=== PATIENT | female | born 1955 | race Caucasian/White ===

== ENCOUNTER 2022-08-03 07:23 | Outpatient (OUT) | payer MEDICARE, SELFPAY ==
[2022-08-03 07:45] LABS: Basophils Percent Auto 0.6 % (0.2-2.0); Eosinophils Absolute Auto 0.1 10^3/uL (0.0-0.7); Eosinophils Percent Auto 2.1 % (0.9-7.0); Hematocrit 40.7 % (36.0-48.0); Hemoglobin 13.6 g/dL (12.0-16.0); Immature Granulocytes Abs Auto 0.01 10^3/uL (0.00-0.03); Immature Granulocytes Pct Auto 0.2 % (0.0-0.5); Lymphocytes Absolute Auto 1.6 10^3/uL (1.2-3.8); Lymphocytes Percent Auto 33.9 % (20.5-60.0); Mean Corpuscular HGB Conc 33.4 g/dL (29.9-35.2); Mean Corpuscular Volume 89.6 fL (81.0-99.0); Mean Platelet Volume 9.1 fL (9.5-13.5); Monocytes Absolute Auto 0.5 10^3/uL (0.3-0.8); Neutrophils Absolute Auto 2.5 10^3/uL (1.4-6.5); Neutrophils Percent Auto 53.2 % (43.0-75.0); Platelet Count 281 10^3/uL (150-450); Red Blood Count 4.54 10^6/uL (4.20-5.40); Red Cell Distribution Width 12.6 % (11.0-15.0); White Blood Count 4.7 10^3/uL (4.0-11.0)
[2022-08-03 09:14] LABS: Estimated Average Glucose 120 mg/dL; Glycohemoglobin A1C 5.8 % (4.5-6.2)
[2022-08-03 09:22] LABS: Alanine Aminotransferase 31 U/L (14-59); Anion Gap 10.6; BUN Creatinine Ratio 22.2; Calcium 9.1 mg/dL (8.5-10.1); Carbon Dioxide 29.5 mmol/L (21.0-32.0); Chloride 104 mmol/L (98-107); Chol HDL Ratio 6.1; Cholesterol 257 mg/dL (<=200); Estimated GFR (African America >60 (>=60); Estimated GFR (Non-African Ame >60 (>=60); Glucose 105 mg/dL (74-106); HDL Cholesterol 42 mg/dL (40-60); Potassium 4.1 mmol/L (3.5-5.1); Sodium 140 mmol/L (136-145); Triglycerides 205 mg/dL (<=150)
== END 2022-08-03 07:24 | disposition home or self-care (01) ==
LOC: LAB 07:29
PROVIDERS: PCP Internal Medicine; Visit Provider Internal Medicine
DX: R73.01 Impaired fasting glucose (principal); E78.00 Pure hypercholesterolemia, unspecified; Z79.899 Other long term (current) drug therapy
CPT/HCPCS: 36415; 80048; 80061; 83036; 84460; 85025

== ENCOUNTER 2023-08-16 07:23 | Outpatient (OUT) | payer MEDICARE, SELFPAY ==
[2023-08-16 08:08] LABS: Basophils Percent Auto 0.6 % (0.2-2.0); Eosinophils Absolute Auto 0.1 10^3/uL (0.0-0.7); Eosinophils Percent Auto 2.2 % (0.9-7.0); Hemoglobin 13.7 g/dL (12.0-16.0); Immature Granulocytes Abs Auto 0.02 10^3/uL (0.00-0.03); Immature Granulocytes Pct Auto 0.4 % (0.0-0.5); Lymphocytes Absolute Auto 1.5 10^3/uL (1.2-3.8); Lymphocytes Percent Auto 30.2 % (20.5-60.0); Mean Corpuscular HGB Conc 33.4 g/dL (29.9-35.2); Mean Corpuscular Hemoglobin 30.4 pg (26.7-34.0); Mean Corpuscular Volume 91.1 fL (81.0-99.0); Mean Platelet Volume 9.5 fL (9.5-13.5); Monocytes Absolute Auto 0.5 10^3/uL (0.3-0.8); Monocytes Percent Auto 10.4 % (1.7-12.0); Neutrophils Absolute Auto 2.9 10^3/uL (1.4-6.5); Neutrophils Percent Auto 56.2 % (43.0-75.0); Platelet Count 274 10^3/uL (150-450); White Blood Count 5.1 10^3/uL (4.0-11.0)
[2023-08-16 09:30] LABS: Estimated Average Glucose 120 mg/dL; Glycohemoglobin A1C 5.8 % (4.5-6.2)
[2023-08-16 10:48] LABS: Alanine Aminotransferase 32 U/L (14-59); Albumin Globulin Ratio 1.1; Alkaline Phosphatase 56 U/L (46-116); Anion Gap 9.6; Aspartate Amino Transferase 19 U/L (15-37); BUN Creatinine Ratio 31.6; Bilirubin Total 0.5 mg/dL (0.2-1.0); Carbon Dioxide 28.4 mmol/L (21.0-32.0); Chloride 105 mmol/L (98-107); Chol HDL Ratio 5.8; Cholesterol 249 mg/dL (<=200); Estimated GFR (African America >60 (>=60); Estimated GFR (Non-African Ame >60 (>=60); Globulin 3.5 g/dL; Glucose 108 mg/dL (74-106); HDL Cholesterol 43 mg/dL (40-60); Sodium 139 mmol/L (136-145); Total Protein 7.5 g/dL (6.4-8.2); Triglycerides 219 mg/dL (<=150); VLDL CHOLESTEROL 43.8 mg/dL
== END 2023-08-16 07:24 | disposition home or self-care (01) ==
LOC: LAB 07:25
PROVIDERS: PCP Internal Medicine; Visit Provider Internal Medicine
DX: R73.01 Impaired fasting glucose (principal); J45.909 Unspecified asthma, uncomplicated; I10 Essential (primary) hypertension; E78.00 Pure hypercholesterolemia, unspecified
CPT/HCPCS: 36415; 80053; 80061; 83036; 85025

== ENCOUNTER 2024-03-05 08:48 | Outpatient (OUT) | payer MEDICARE, SELFPAY ==
--- OUTSIDE RECORDS SUMMARY | 2024-03-05 08:53 | XMS_ITS | CCD ---
Author Organization [facility] Team Providers Care Staff Mine Warfare Officer Name Role Phone CARMENCITA, DR THAPA Admitting Unavailable CARMENCITA, DR THAPA Attending Unavailable CARMENCITA, DR THAPA Referring Unavailable CARMENCITA, DR THAPA Primary Care Unavailable CARMENCITA, DR THAPA Consulting Unavailable Carmencita, Patrick Unavailable Allergies Allergy Classification Reported Allergen(s) Allergy Type Date of Onset Reaction(s) Facility (4 sources) Lovastatin Drug Allergy Unknown [facility] Other (1 source) patient allergy list reviewed by nurse or physicia Propensity to adverse reactions 9 Comment:Done [facility] Other Medications Current Medications Medication Drug Class(es) Dates Sig (Normalized) Sig (Original) [id number] actuat albuterol 0.09 mg/actuat metered dose inhaler (5 sources) beta2-Adrenergic Agonist Start: 08-03-2023 take 1 puff(s) by inhalation every four hours Albuterol Sulfate Active 1 PUFF INHALATION Every 4 hours August 03, 2023 12:00am take 1 puff(s) by in halation every four hours as needed Albuterol Sulfate HFA 108 (90 Base) MCG/ACT 1 puff as needed Inhalation every 4 hrs Active take 1 puff(s) by in halation every four hours as needed Albuterol Sulfate HFA 108 (90 Base) MCG/ACT 1 puff as needed Inhalation every 4 hrs Active biotin 1 mg chewable tablet (5 sources) Start: 08-03-2023 take 1000 ug by mouth once daily Biotin Active 1000 MCG PO Daily August 03, 2023 12:00am take 1 tablet by elpidio th every twenty-four hours Biotin 1000 MCG 1 tablet Orally Once a day Active take 1 tablet by elpidio th every twenty-four hours Biotin 1000 MCG 1 tablet Orally Once a day Active bisoprolol fumarate 5 mg / hydroCHLOROthiazide 6.25 mg oral tablet (6 sources) Thiazide Diuretic, beta-Adrenergic Allison Start: 04-03-2023 End: 07-03-2023 take 1 tablet by mouth once daily Bisoprolol-Hydrochlorothiazide Active 1 TAB PO Daily July 03, 2023 12:57pm take 1 tablet by elpidio th once daily Bisoprolol-hydroCHLOROthiazide 5-6.25 MG TAKE 1 TABLET BY MOUTH EVERY DAY Active esomeprazole 40 mg delayed release oral capsule (5 sources) Proton Pump Inhibitor Start: 08-03-2023 take 40 mg by mouth once daily Esomeprazole Magnesium Active 40 MG PO Daily August 03, 2023 12:00am take 1 capsule by mo uth once daily at breakfast Esomeprazole Magnesium 40 MG TAKE 1 CAPS ULE BY MOUTH ONCE A DAY ON AN EMPTY STOMACH FOLLOWED IN 30 MINUTES BY BREAKFAST Active Fluticasone Propion-Salmeterol (5 sources) Corticosteroid, beta2-Adrenergic Agonist Start: 08-03-2023 Fluticasone Propion-Salmeterol (Advair Diskus) 250-50 mcg/dose blister with device Active 1 INH INHALATION Every 12 hours August 03, 2023 12:00am take 1 puff(s) by mouth every tw elve hours Advair Diskus 250-50 MCG/ACT INHALE 1 PUFF BY MOUTH EVERY 12 HOURS for 30 Active Glucosamine Chond Cmp Advanced - (4 sources) Glucosamine Roque d Cmp Advanced - as directed Orally Active mecobalamin 1 mg chewable tablet (1 source) Start: 4 take 1000 ug by mouth once daily Mecobalamin (Vitamin B12) Active 1000 MCG PO Daily August 03, 2023 12:00am montelukast 10 mg oral tablet (6 sources) Leukotriene Receptor Antagonist Start: 4 End: 4 take 10 mg by mouth once daily at bedtime Montelukast Active 10 MG PO Daily at bedtime 90 July 03, 2023 6:04pm take 1 tablet by mouth at bedtim e Montelukast Sodium 10 MG TAKE 1 TABLET BY MOUTH AT BEDTIME for 90 Active rosuvastatin calcium 10 mg oral tablet (3 sources) HMG-CoA Reductase Inhibitor Start: 08-03-2023 take 10 mg by mouth once daily Rosuvastatin Active 10 MG PO Daily August 03, 2023 12:00am Rosuvastatin Apollo cium 10 MG TAKE 1 TABLET BY MOUTH EVERY DAY FOR 30 DAYS for 30 Active ubiquinol 100 mg oral capsule (1 source) Start: 08-03-2023 Coq10 (Ubiquin ol) (Qunol Juve Coq10) 100 mg capsule Active 200 MG PO Twice daily August 03, 2023 12:00am vitamin b12 1 mg extended release oral tablet (2 sources) Vitamin B12 take 2 tablets by mouth every twenty-four hours Vitamin B12 1000 MCG 2 tablets Orally Once a day Active Vitamin B12 1000 MCG (2 sources) take 2 tablets by mouth once daily Vitamin B12 1000 MCG 2 tablets Orally Once a day Active vitamin e 450 mg oral capsule (3 sources) Start: 08-03-2023 take 1000 [IU] by mouth once daily Vitamin E Mixed Active 1000 UNIT PO Daily August 03, 2023 12:00am Vitamin E 1000 U NIT as directed Orally Active Vitamin E 1000 UNIT (2 sources) Vitamin E 1000 U NIT as directed Orally Active Problems Active Problems Problem Classification Problem Date Documented Date Episodic/Chronic Asthma (13 sources) Uncomplicated mild persistent asthma; Translations: [Mild persistent asthma, uncomplicated] Onset: 04-11-2013 Chronic Chronic obstructive pulmonary disease and bronchiectasis (2 sources) Unspecified chronic bronchitis; Translations: [Chronic bronchitis] Onset: 08-25-2016 Chronic Conditions associated with dizziness or vertigo (2 sources) Benign paroxysmal vertigo, bilateral; Translations: [Benign paroxysmal positional vertigo] Episodic Diabetes mellitus without complication (10 sources) Impaired fasting glycemia; Translations: [Impaired fasting glucose] Episodic Disorders of lipid metabolism (12 sources) Hypercholesterolemia; Translations: [Pure hypercholesterolemia, unspecified] Onset: 10-01-2014 Chronic Diverticulosis and diverticulitis (2 sources) Diverticulitis of colon (without mention of hemorrhage); Translations: [Diverticulitis of colon] Onset: 10-20-2013 Chronic Esophageal disorders (6 sources) Esophageal reflux; Translations: [Gastro-esophageal reflux disease with esophagitis] Onset: 10-01-2014 08-01-2023 Chronic Essential hypertension (4 sources) Essential hypertension; Translations: [Essential (primary) hypertension] Chronic Osteoarthritis (3 sources) Bilateral primary osteoarthritis of first carpometacarpal joints; Translations: [Localized, primary osteoarthritis of the hand] Onset: 04-03-2018 Chronic Other aftercare (1 source) Other moth exterminator (current) drug therapy Episodic Other inflammatory condition of skin (1 source) Other rosacea; Translations: [Other rosacea] Chronic Other inflammatory condition of skin (1 source) Rosacea; Translations: [Other rosacea] Chronic Other nutritional; endocrine; and metabolic disorders (1 source) Obesity, unspecified; Translations: [Obesity, unspecified] Chronic Other nutritional; endocrine; and metabolic disorders (1 source) Other obesity due to excess calories; Translations: [Other obesity due to excess calories] Chronic Other nutritional; endocrine; and metabolic disorders (2 sources) Obese class I; Translations: [Body mass index 33.0-33.9, adult] Onset: 10-01-2014 Chronic Other nutritional; endocrine; and metabolic disorders (1 source) Obesity; Translations: [Obesity, unspecified] Chronic Other nutritional; endocrine; and metabolic disorders (1 source) Simple obesity ; Translations: [Other obesity due to excess calories] Chronic Other nutritional; endocrine; and metabolic disorders (1 source) Overweight Episodic Residual codes; unclassified (5 sources) Procedure and treatment not carried out because of patient's decision for unspecified reasons; Translations: [Surgical or other procedure not carried out because of patient's decision] Episodic Residual codes; unclassified (1 source) Procedure not done; Translations: [Procedure and treatment not carried out because of patient's decision for unspecified reasons] Episodic Residual codes; unclassified (1 source) Colon cancer screening declined; Translations: [Procedure and treatment not carried out because of patient's decision for unspecified reasons] 08-01-2023 Episodic Residual codes; unclassified (1 source) Mammogram declined; Translations: [Procedure and treatment not carried out because of patient's decision for unspecified reasons] 08-01-2023 Episodic Screening and history of mental health and substance abuse codes (1 source) Encounter for screening for depression; Translations: [Encounter for screening for depression] Episodic Viral infection (2 sources) COVID-19; Translations: [Disease caused by 2019-nCoV] Past or Other Problems Problem Classification Problem Date Documented Da te Episodic/Chronic Abdominal pain (4 sources) Left lower quadrant pain; Translations: [Unspecified abdominal pain] Onset: 10-13-2013 Episodic Acute bronchitis (2 sources) Acute bronchitis, unspecified; Translations: [Acute bronchitis] Onset: 04-08-2014 Episodic Asthma (1 source) Asthma; Translations: [Asthma, unspecified, unspecified status] Onset: 08-25-2016 Esophageal disorders (6 sources) Esophageal disorders; Translations: [Gastroesophageal reflux disease with esophagitis without hemorrhage] Nausea and vomiting (2 sources) Nausea; Translations: [Nausea] Onset: 11-29-2015 Episodic Nonspecific chest pain (2 sources) Chest pain, unspecified; Translations: [Chest pain] Onset: 08-26-2014 Episodic Other acquired deformities (2 sources) Barling-neck deformity; Translations: [Barling-neck deformity] Onset: 04-11-2013 Episodic Other connective tissue disease (1 source) Other tenosynovitis of hand and wrist; Translations: [Other tenosynovitis of hand and wrist] Onset: 02-21-2018 Episodic Other connective tissue disease (1 source) Unspecified rotator cuff tear or rupture of left shoulder, not specified as traumatic; Translations: [Unspecified rotator cuff tear or rupture of left shoulder, not specified as traumatic] Onset: 04-11-2013 Episodic Other connective tissue disease (2 sources) Radial styloid tenosynovitis; Translations: [Radial styloid tenosynovitis] Onset: 02-21-2018 Episodic Other connective tissue disease (1 source) Tendinitis AND/OR tenosynovitis of wrist AND/OR hand; Translations: [Other tenosynovitis of hand and wrist] Onset: 02-21-2018 Episodic Other connective tissue disease (1 source) Nontraumatic rupture of rotator cuff of left shoulder; Translations: [Unspecified rotator cuff tear or rupture of left shoulder, not specified as traumatic] Onset: 04-11-2013 Episodic Other gastrointestinal disorders (1 source) Diarrhea, unspecified; Translations: [Diarrhea, unspecified] Onset: 11-29-2015 Episodic Other gastrointestinal disorders (1 source) Diarrhea; Translations: [Diarrhea, unspecified] Onset: 11-29-2015 Episodic Other lower respiratory disease (1 source) Dyspnea, unspecified; Translations: [Dyspnea, unspecified] Onset: 08-26-2014 Episodic Other lower respiratory disease (1 source) Dyspnea; Translations: [Dyspnea, unspecified] Onset: 08-26-2014 Episodic Other non-traumatic joint disorders (1 source) Arthralgia of the pelvic region and thigh; Translations: [Pain in joint, pelvic region and thigh] Onset: 11-10-2013 Episodic Other non-traumatic joint disorders (1 source) Shoulder joint pain; Translations: [Pain in joint, shoulder region] Onset: 05-30-2013 Episodic Other upper respiratory infections (2 sources) Acute sinusitis, unspecified; Translations: [Acute sinusitis] Onset: 04-08-2014 Episodic Unclassified (1 source) Pain in joint, pelvic region and thigh; Translations: [Pain in joint, pelvic region and thigh] Onset: 11-10-2013 Unclassified (1 source) Pain in joint, shoulder region; Translations: [Pain in joint, shoulder region] Onset: 05-30-2013 Unclassified (1 source) Body mass index 33.0-33.9, adult; Translations: [Body mass index 33.0-33.9, adult] Onset: 10-01-2014 Unclassified (1 source) Screening for lipoid disorders; Translations: [Screening for lipoid disorders] Onset: 10-01-2014 Unclassified (1 source) Long-term (current) use of other medications; Translations: [Long-term (current) use of other medications] Onset: 10-09-2016 Unclassified (1 source) Body mass index 32.0-32.9, adult; Translations: [Body mass index 32.0-32.9, adult] Onset: 10-01-2014 Unclassified (1 source) Primary localized osteoarthrosis, hand; Translations: [Primary localized osteoarthrosis, hand] Onset: 04-03-2018 Unclassified (1 source) Routine general medical examination at health care facility; Translations: [Routine general medical examination at health care facility] Onset: 08-25-2016 Unclassified (1 source) Long-term current use of drug therapy; Translations: [Long-term (current) use of other medications] Onset: 10-09-2016 Results Test Name Value Interpretation Reference Range Facil ity CBC AUTO DIFFon 04-22-2021 BASO # 0.0 103/ul Normal 0.0-0.1 [facility] Comment on above: Performed By: #### C BC #### [facility] [address] [address] [address] Flex Hart Basophils/100 WBC (Bld) 0.7 % Normal 0.2-2.0 [facility] Comment on above: Performed By: #### C BC #### [facility] [address] [place] [address] Dr. Flex Hart EO # 0.1 103/ul Normal 0.0-0.7 [facility] Comment on above: Performed By: #### C BC #### [facility] [address] [place] [address] Dr. Flex Hart Eosinophils/100 WBC (Bld) 2.2 % Normal 0.9-7.0 [facility] Comment on above: Performed By: #### C BC #### [facility] [address] [place] [address] Dr. Flex Hart Erythrocyte distribution width (RBC) [Ratio] 12.3 % Normal 11.0-15.0 [facility] Comment on above: Performed By: #### C BC #### [facility] [address] [place] [address] Dr. Flex Hart Hematocrit (Bld) [Volume fraction] 42.6 % Normal 36.0-48.0 [facility] Comment on above: Performed By: #### C BC #### [facility] [address] [place] [address] Dr. Flex Hart Hemoglobin (Bld) [Mass/Vol] 13.8 g/dL Normal 12.0-16.0 [facility] Comment on above: Performed By: #### C BC #### [facility] [address] [place] [address] Dr. Flex Hart IG # 0.01 10e3/ul Normal 0.00-0.03 [facility] Comment on above: Performed By: #### C BC #### [facility] [address] [place] [address] Dr. Flex Hart IG % 0.2 % Normal 0.0-0.5 [facility] Comment on above: Performed By: #### C BC #### [facility] [address] [place] [address] Dr. Flex Hart LYMPH # 2.0 103/ul Normal 1.2-3.8 [facility] Comment on above: Performed By: #### C BC #### [facility] [address] [place] [address] Dr. Flex Hart Lymphocytes/100 WBC (Bld) 35.5 % Normal 20.5-60.0 [facility] Comment on above: Performed By: #### C BC #### [facility] [address] [place] [address] Dr. Flex Hart MANUAL DIFF REQ NO Normal [facility] Comment on above: Performed By: #### C BC #### [facility] [address] [place] [address] Dr. Flex Hart MCH (RBC) [Entitic mass] 30.1 pg Normal 26.7-34.0 [facility] Comment on above: Performed By: #### C BC #### [facility] [address] [place] [address] Dr. Flex Hart MCHC (RBC) [Mass/Vol] 32.4 g/dL Normal 29.9-35.2 [facility] Comment on above: Performed By: #### C BC #### [facility] [address] [place] [address] Dr. Flex Hart MCV (RBC) [Entitic vol] 93.0 fL Normal 81.0-99.0 [facility] Comment on above: Performed By: #### C BC #### [facility] [address] [place] [address] Dr. Flex Hart MONO # 0.5 103/ul Normal 0.3-0.8 [facility] Comment on above: Performed By: #### C BC #### [facility] [address] [place] [address] Dr. Flex aHrt Monocytes/100 WBC (Bld) 9.1 % Normal 1.7-12.0 [facility] Comment on above: Performed By: #### C BC #### [facility] [address] [place] [address] Dr. Flex Hart NEUT # 2.9 103/ul Normal 1.4-6.5 [facility] Comment on above: Performed By: #### C BC #### [facility] [address] [place] [address] Dr. Flex Hart Neutrophils/100 WBC (Bld) 52.3 % Normal 43.0-75.0 [facility] Comment on above: Performed By: #### C BC #### [facility] [address] [place] [address] Dr. Flex Hart Platelet mean volume (Bld) [Entitic vol] 9.4 fL Critically low 9.5-13.5 [facility] Comment on above: Performed By: #### C BC #### [facility] [address] [place] [address] Dr. Flex Hart PLT 295 103/ul Normal 150-450 [facility] Comment on above: Performed By: #### C BC #### [facility] [address] [place] [address] Dr. Flex Hart RBC 4.58 106/ul Normal 4.20-5.40 [facility] Comment on above: Performed By: #### C BC #### [facility] [address] [place] [address] Dr. Flex Hart WBC 5.6 103/ul Normal 4.0-11.0 [facility] Comment on above: Performed By: #### C BC #### [facility] [address] [place] [address] Dr. Flex Hart LIPID PROFILEon 04-22-2021 CHOL-HDL RATIO NORM SEE BELOW Normal [facility] [place] Comment on above: Result Comment: 3.3 - 4.4 LOW RISK 4.4 - 7.1 AVERAGE RISK 7.1 - 11.0 MODERATE RISK >11.0 HIGH RISK Performed By: #### C MP, LIPID #### [facility] [address] [place] [address] Dr. Flex Hart Cholesterol [Mass/Vol] 294 mg/dL Critically high <=200 [facility] Comment on above: Performed By: #### C MP, LIPID #### [facility] [address] [place] [address] Dr. Flex Hart Cholesterol in HDL [Mass/Vol] 44 mg/dL Normal 40-60 [facility] Comment on above: Performed By: #### C MP, LIPID #### [facility] [address] [address] [address] Flex Hart Cholesterol in LDL [Mass/Vol] 203.6 mg/dL Normal [facility] Comment on above: Performed By: #### C MP, LIPID #### [facility] [address] [address] [address] Flex Hart Cholesterol.total/C holesterol in HDL [Mass ratio] 6.7 {ratio} Normal [facility] Comment on above: Performed By: #### C MP, LIPID #### [facility] [address] [address] [address] Flex Hart HDL NORMAL > or = 60 mg/dl - LO W CARDIOVASCULAR RISK <40 mg/dl - HIGH CARDIOVASCULAR RISK Normal [facility] Comment on above: Performed By: #### C MP, LIPID #### [facility] [address] [place] [address] Dr. Flex Hart LDL CALC NORMAL SEE BELOW Normal [facility] Comment on above: Result Comment: <100 mg/dl OPTIMAL 100 - 129 mg/dl NEAR OR ABOVE OPTIMAL 130 - 159 mg/dl BORDERLINE HIGH 160 - 189 mg/dl HIGH >190 mg/dl VERY HIGH Performed By: #### C MP, LIPID #### [facility] [address] [place] [address] Dr. Flex Hart Triglyceride [Mass/Vol] 232 mg/dL Critically high <=150 [facility] Comment on above: Performed By: #### C MP, LIPID #### [facility] [address] [address] [address] Flex Hart VLDL CALC 46.4 mg/dL Normal [facility] Comment on above: Performed By: #### C MP, LIPID #### [facility] [address] [address] [address] Flex Hart PROF 14(COMP METB)on 022 Albumin [Mass/Vol] 4.2 g/dL Normal 3.4-5.0 [facility] Comment on above: Performed By: #### C MP, LIPID #### [facility] [address] [address] [address] Flex Hart Albumin/Globulin [Mass ratio] 1.1 {ratio} Normal [facility] Comment on above: Performed By: #### C MP, LIPID #### [facility] [address] [address] [address] Flex Hart ALP [Catalytic activity/Vol] 60 U/L Normal 46-116 [facility] Comment on above: Performed By: #### C MP, LIPID #### [facility] [address] [address] [address] Flex Hart ALT [Catalytic activity/Vol] 28 U/L Normal 14-59 [facility] Comment on above: Performed By: #### C MP, LIPID #### [facility] [address] [address] [address] Flex Hart Anion gap [Moles/Vol] 11.7 mmol/L Normal [facility] Comment on above: Performed By: #### C MP, LIPID #### [facility] [address] [address] [address] Flex Hart AST [Catalytic activity/Vol] 22 U/L Normal 15-37 [facility] Comment on above: Performed By: #### C MP, LIPID #### [facility] [address] [address] [address] Flex Hart Bilirubin [Mass/Vol] 0.4 mg/dL Normal 0.2-1.3 [facility] Comment on above: Performed By: #### C MP, LIPID #### [facility] [address] [address] [address] Flex Hart Calcium [Mass/Vol] 8.9 mg/dL Normal 8.5-10.1 [facility] Comment on above: Performed By: #### C MP, LIPID #### [facility] [address] [address] [address] Flex Hart Chloride [Moles/Vol] 105 mmol/L Normal 98-107 [facility] Comment on above: Performed By: #### C MP, LIPID #### [facility] [address] [address] [address] Flex Hart CO2 [Moles/Vol] 27.6 mmol/L Normal 22.0-30.0 [facility] Comment on above: Performed By: #### C MP, LIPID #### [facility] [address] [address] [address] Flex Hart Creatinine [Mass/Vol] 0.66 mg/dL Normal 0.52-1.04 [facility] Comment on above: Performed By: #### C MP, LIPID #### [facility] [address] [address] [address] Flex Hart EGFR-AF PUERTO RICAN >60 Normal >=60 [facility] Comment on above: Performed By: #### C MP, LIPID #### [facility] [address] [place] [address] Dr. Flex Hart EGFR-NON AF PUERTO RICAN >60 Normal >=60 [facility] Comment on above: Performed By: #### C MP, LIPID #### [facility] [address] [place] [address] Dr. Flex Hart Globulin (S) [Mass/Vol] 3.7 g/dL Normal [facility] Comment on above: Performed By: #### C MP, LIPID #### [facility] [address] [place] [address] Dr. Flex Hart Glucose [Mass/Vol] 114 mg/dL Critically high 74-106 [facility] Comment on above: Performed By: #### C MP, LIPID #### [facility] [address] [place] [address] Dr. Flex Hart Potassium [Moles/Vol] 4.3 mmol/L Normal 3.4-5.0 [facility] Comment on above: Performed By: #### C MP, LIPID #### [facility] [address] [address] [address] Flex Hart Protein [Mass/Vol] 7.9 g/dL Normal 6.1-8.2 [facility] Comment on above: Performed By: #### C MP, LIPID #### [facility] [address], [place] [address] Dr. Flex Hart Sodium [Moles/Vol] 140 mmol/L Normal 137-145 [facility] Comment on above: Performed By: #### C MP, LIPID #### [facility] [address], [place] [address] Dr. Flex Hart Urea nitrogen [Mass/Vol] 16.0 mg/dL Normal 7.0-18.0 [facility] Comment on above: Performed By: #### C MP, LIPID #### [facility] [address], [place] [address] Dr. Flex Hart Urea nitrogen/Creatinine [Mass ratio] 24.2 mg/mg Normal [facility] Comment on above: Performed By: #### C MP, LIPID #### [facility] [address], [place] [address] Dr. Flex Hart Vital Signs Date Time Vital Sign Value Performing Clinician Facility 08-03-2023 11:08-0400 Body height 160.02 cm [facility] 08-03-2023 11:08-0400 Body mass index (BMI) [Ratio] 28.3 kg/m2 [facility] 08-03-2023 11:08-0400 Body weight 72.68 kg [facility] 08-03-2023 11:08-0400 Diastolic blood pressure 71 mm[Hg] [facility] 08-03-2023 11:08-0400 Heart rate 71 /min [facility] 08-03-2023 11:08-0400 Respiratory rate 12 /min [facility] 08-03-2023 11:08-0400 Systolic blood pressure 127 mm[Hg] [facility] 03-19-2023 09:30-0500 Body height 167.64 cm Patrick Tse Other [facility] Other 03-19-2023 09:30-0500 Body mass index (BMI) [Ratio] 26.66 kg/m2 Patrick Ball Other [facility] Other 03-19-2023 09:30-0500 Body weight 74.93 kg Patrick Ball Other [facility] Other 03-19-2023 09:30-0500 Diastolic blood pressure 75 mm[Hg] Patrick Ball Other [facility] Other 03-19-2023 09:30-0500 Respiratory rate 12 /min Patrick Ball Other [facility] Other 03-19-2023 09:30-0500 Systolic blood pressure 130 mm[Hg] Patrick Ball Other [facility] Other 08-01-2022 09:30-0400 Body height 167.64 cm Patrick Ball Other [facility] Other 08-01-2022 09:30-0400 Body mass index (BMI) [Ratio] 25.85 kg/m2 Patrick Ball Other [facility] Other 08-01-2022 09:30-0400 Body weight 72.67 kg Patrick Ball Other [facility] Other 08-01-2022 09:30-0400 Diastolic blood pressure 80 mm[Hg] Patrick Ball Other [facility] Other 08-01-2022 09:30-0400 Respiratory rate 12 /min Patrick Ball Other [facility] Other 08-01-2022 09:30-0400 Systolic blood pressure 125 mm[Hg] Patrick Ball Other [facility] Other Encounters Encounter Date Encounter Type Care Provider Facility Start: 08-03-2023 End: 08-03-2023 [facility] Work Phone: Start: 08-03-2023 End: 08-03-2023 Patient encounter procedure [facility] Work Phone: Start: 07-03-2023 Non-patient / Non-visit [facility] Work Phone: Start: 03-19-2023 End: 03-19-2023 ambulatory Patrick Tse Other [facility] Other Start: 03-19-2023 Office outpatient vi sit 25 minutes Patrick Carmencita [facility] Start: 02-27-2023 End: 02-27-2023 ambulatory Patrick Tse Other [facility] Other Start: 02-27-2023 Telephone encounter Patrick Tse [facility] Start: 08-04-2022 End: 08-04-2022 ambulatory Patrick Tse Other [facility] Other Start: 08-04-2022 Telephone encounter Patrick Tse [facility] Start: 08-01-2022 End: 08-01-2022 ambulatory Patrick Tse Other [facility] Other Start: 08-01-2022 Initial preventive exam Patrick Webb narayan [facility] Start: 08-01-2022 Patient encounter procedure Patrick Tse [facility] Start: 08-01-2022 Patient encounter status Patrick Tse Other [facility] Other Start: 04-26-2021 Encounter for genera l adult medical examination without abnormal findings DR PATRICK TSE [facility] Start: 04-22-2021 End: 04-23-[address] PATRICK TSE Facility:[facility] Start: 04-22-2021 End: 04-23-2021 Encounter for general adult medical examination without abnormal findings DR PATRICK TSE Facility:[facility] Start: 04-18-2021 Adult health examination Patrick Tse Other [facility] Other Start: 04-18-2021 Encounter for genera l adult medical examination without abnormal findings Patrick Tse Other [facility] [employer] Other Procedures Date Procedure Procedure Detail Performing Clinician Start: 08-25-2016 General examination of patient Patrick Tse Other Start: 10-01-2014 Hyperlipidemia screening Patrick Tse Other Depression screening Guerda Tse Other Plan of Treatment Date Care Activity Detail Author Comprehensive metabo lic 2000 panel - Serum or Plasma [facility] enter [facility] Payers Date Payer Category Payer Unknown [id number] 1957 Unknown [id number] 1955 Unknown [id number] Medicare [id number] 2.1 [id number] Private Health Insurance CLI [id number] Social History Date Type Detail Facility Sex Assigned At [facility] [email or web address] [facility] Other Start: 08-03-2023 Tobacco smoking stat us [facility] Never smoked tobacco (finding) [facility] Start: 1955 Sex Assigned At Female F [facility] Evaluation note 03-19-2023 Note Date & Type Note Facility 03-19-2023 Evaluation note Encounter Date Diagnosis Assessment Notes Mar, IFG (impaired fasting glucose) (ICD-10 - R73.01) Instructed on a healthy diet and exercise routine. A1C every year w/ wellness examination w/ goal < 6.5% Instructed on correlation of obesity and insulin resistance. Mar, Primary hypertension (ICD-10 - I10) This patient is instructed to consume a healthy, low-fat, low-salt diet. They are also encouraged to continue exercise to achieve/maintain a normal BMI. Mar, Hypercholesteremia (ICD-10 - E78.00) Instructed on diet and exercise with continued statin therapy.Discussed the beneficial effects of lowering cholesterol in reducing the risk for cerebrovascular and cardiovascular disease. Mar, Mild persistent asthma without complication (ICD-10 - J45.30) Controlled w/ exacerbations limited to seasonal changes and URI. She is instructed to increased maintenance inhaler to bid and use HEATHER every 4 hours as needed during exacerations. She uses maintenance inhalers qd. No ER visits for AE in past 6mo Mar, Overweight (ICD-10 - E66.3) This patient has been instructed on a low-fat, high-fiber diet. They are instructed to reduce calories, portion sizes and snacks. It is recommended that they exercise for 30 minutes, 3-5 times weekly. Mar, Gastroesophageal reflux disease with esophagitis without hemorrhage (ICD-10 - K21.00) Avoid lying flat after eating. Avoid eating 2 hours prior to bedtime. Smaller, frequent meals may be better tolerated.Weight loss if overweight.PPI with any heartburn.Monitor for dysphagia. [facility] Other Evaluation note 08-01-2022 Note Date & Type Note Facility 08-01-2022 Evaluation note Encounter Date Diagnosis Assessment Notes Jul, IFG (impaired fasting glucose) (ICD-10 - R73.01) This patient is following a comprehensive diabetic treatment plan. They are checking their feet daily for calluses and nonhealing ulcers. They are being seen for yearly dilated eye examinations. Goals: SBP less than 130, LDL less than 100, FBS less than 140, AC and A1C less than 7%. They are checking their BS daily, will which are reviewed at the office visit. Continue regular routine monitoring of A1C,] Microalbumin, Dilated eye exam and Foot exam Jul, Medicare annual wellness visit, initial (ICD-10 - Z00.00) Personalized health advice was given to the beneficiary including a written plan for screenings discussed and provided. Advanced care planning reviewed and/or information given as requested. Additional counseling was provided here today in regards to, [ ]. The above visit was performed by [ ], under direct supervision of [ ]. Document reviewed and amended by provider signed below. Healthy diet and exercise. Reviewed age-appropriate preventive testing recommended. Jul, Hypercholesteremia (ICD-10 - E78.00) Instructed on diet and exercise with continued statin therapy.Discussed the beneficial effects of lowering cholesterol in reducing the risk for cerebrovascular and cardiovascular disease. Jul, Mild persistent asthma without complication (ICD-10 - J45.30) No ER visits for AE Continue maintenance inhaler: LABA/ICS Rare use of HEATHER Jul, Gastroesophageal reflux disease with esophagitis without hemorrhage (ICD-10 - K21.00) Diet instructions: Smaller portions, avoid eating and laying flat, avoid eating or drinking prior to bedtime. Weight loss. Jul, Screening mammography declined (ICD-10 - Z53.20) Instructed to continue SBE and notify office if detect abnormality Jul, Colon cancer screening declined (ICD-10 - Z53.20) Monitor diet, bowel habits and notify office w/ any changes Jul, High risk medication use (ICD-10 - Z79.899) [facility] Other Evaluation note Note Date & Type Note Facility Evaluation note No Information [employer] Other Evaluation note Note Date & Type Note Facility Evaluation note Diagnosis Onset Date Asthma acute GERD (gastroesophageal reflux disease) acute Hypercholesterolemia acute Hypertension acute IFG (impaired fasting glucose) acute Screening for malignant neop lasm of colon declined acute Screening mammography declined acute Medicare annual wellness visit, initial noneactive [facility] Work Phone: History general Narrative - Reported Note Date & Type Note Facility History general Narrative - Reported Type Medical History Hypercholesterolemia Medical History Gastroesophageal ref lux disease with esophagitis without hemorrhage Medical History IFG (impaired fasting glucose) [facility] Other History general Narrative - Reported Note Date & Type Note Facility History general Narrative - Reported Type Medical History Hypercholesterolemia Medical History Gastroesophageal ref lux disease with esophagitis without hemorrhage Medical History IFG (impaired fasting glucose) Surgical History Problem Title : Non- Contributory Past Surgical History, Problem Status : Active, Surgical History Problem Title : past surgical history reviewed, Problem Description : past surgical history reviewed, Problem Comment : reviewed - no changes required, Problem Status : Resolved, [facility] Other History general Narrative - Reported Note Date & Type Note Facility History general Narrative - Reported Type Medical History Hypercholesterolemia Medical History Gastroesophageal ref lux disease with esophagitis without hemorrhage Medical History IFG (impaired fasting glucose) Surgical History No know Surgical history [facility] Other Summary Purpose Family History Relationship Condition Age at Onset Recorded Date/T gurjit father Malignant neoplasm Unknown Advance Directives Advance Directive Response Recorded Date/ Time Advance Directives No March 11:17am Chief Complaint and Reason for Visit Chief Complaint Amb Documentation Medicare Wellness Reason for Visit Asthma GERD (gastroesophageal reflux disease) Hypercholesterolemia Hypertension IFG (impaired fasting glucose) Screening for malignant neoplasm of colon declined Screening mammography declined Medicare annual wellness visit, initial Additional Source Comments INFORMATION SOURCE (unrecogn ized section and content) DATE CREATED AUTHOR 04/27/2021 [facility] REASON FOR VISIT (unrecogniz ed section and content) Lab ResultsWellnessNo Inform ation6 Month Check Up Care Teams (unrecognized sec tion and content) Team Status: Active Member Role Status Dates Patrick Tse DO Primary Care Provider Active Team Status: Active Member Role Status Dates Patrick Tse DO Primary Care Provider Active Start: July 03, 2023 Megan Manuel LPN Attending Provider Active St art: July 03, 2023 Team Status: Inactive Member Role Status Dates Patrick Tse DO Primary Care Provide r, Attending Provider Active Start: August 03, 2023 End: August 03, 2023 Goals (unrecognized section and content) Goals may be documented in a n alternate section FOR RECORDS PERTAINING TO PATIENTS WHO ARE OR HAVE BEEN ENROLLED IN A CHEMICAL DEPENDENCY/SUBSTANCEABUSE PROGRAM, SOME INFORMATION MAY BE OMITTED. This clinical summary was aggregated from multiple sources. Caution should be exercised in using it in the provision of clinical care. This summary normalizes information from multiple sources, and as a consequence, information in this document may materially change the coding, format and clinical context of patient data. In addition, data may be omitted in some cases. CLINICAL DECISIONS SHOULD BE BASED ON THE PRIMARY CLINICAL RECORDS. [employer] provides no warranty or guarantee of the accuracy or completeness of information in this document.
[2024-03-05 10:16] LABS: Alanine Aminotransferase 34 U/L (14-59); Aspartate Amino Transferase 22 U/L (15-37); Chol HDL Ratio 4.7; Cholesterol 218 mg/dL (<=200); HDL Cholesterol 46 mg/dL (40-60); Triglycerides 177 mg/dL (<=150); VLDL CHOLESTEROL 35.4 mg/dL
== END 2024-03-05 08:49 | disposition home or self-care (01) ==
PROVIDERS: PCP Internal Medicine; Visit Provider Internal Medicine
DX: E78.00 Pure hypercholesterolemia, unspecified (principal); Z79.899 Other long term (current) drug therapy
CPT/HCPCS: 36415; 80061; 84450; 84460

== ENCOUNTER 2024-08-18 07:54 | Outpatient (OUT) | payer MEDICARE, SELFPAY ==
--- OUTSIDE RECORDS SUMMARY | 2024-08-18 08:15 | XMS_ITS | CCD ---
Author Organization [facility] CliniSyfl Care Team Providers Care Specialist Wound Care Name Role Phone DR PATRICK TSE Admitting Unavailable BLANE, DR THAPA Attending Unavailable BLANE, DR THAPA Referring Unavailable BLANE, DR THAPA Primary Care Unavailable BLANE, DR THAPA Consulting Patrick Xiong Unavailable Patrick Tse DO Primary Care Provider Patrick Tse DO Attending Provider [phone] Allergies Allergy Classification Reported Allergen(s) Allergy Type Date of Onset Reaction(s) Facility (4 sources) Lovastatin Drug Allergy Unknown [employer] Other (1 source) patient allergy list reviewed by nurse or physicia Propensity to adverse reactions 9 Comment:Done [employer] Other Medications Current Medications Medication Drug Class(es) Dates Sig (Normalized) Sig (Original) [id number] actuat albuterol 0.09 mg/actuat metered dose inhaler (9 sources) beta2-Adrenergic Agonist Start: 08-04-2024 End: 08-04-2024 Albuterol Sulfate 90 mcg/actuation HFA aerosol inhaler Active 2 PUFF INHALATION every 6 to 8 hours as needed for shortness of breath or wheezing 8.5 30 August 04, 2024 11:12am Complies with drug therapy Start: 08-03-2023 End: 08-04-2024 take 1 puff(s) by inhalation every four hours Albuterol Sulfate 90 mcg/actuation HFA aerosol inhaler Discontinued 1 PUFF INHALATION Every 4 hours August 03, 2023 12:00am August 04, 2024 11:11am take 1 puff(s) by in halation every four hours as needed Albuterol Sulfate HFA 108 (90 Base) MCG/ACT 1 puff as needed Inhalation every 4 hrs Active take 1 puff(s) by in halation every four hours as needed Albuterol Sulfate HFA 108 (90 Base) MCG/ACT 1 puff as needed Inhalation every 4 hrs Active azithromycin 250 mg oral tablet (1 source) Macrolide Antimicrobial Start: 03-28-2024 Azithromycin 250 mg tablet Active 250 MG PO .COMPLEX 6 5 March 28, 2024 1:00am 2 tabs on first day followed by 1 tab on days 2-5 Complies with drug therapy biotin 1 mg chewable tablet (7 sources) Start: 08-03-2023 take 1 tablet by mouth once daily Biotin 1,000 mcg tablet,chewable Active 1000 MCG PO Daily August 03, 2023 12:00am Complies with drug therapy take 1 tablet by elpidio th every twenty-four hours Biotin 1000 MCG 1 tablet Orally Once a day Active take 1 tablet by elpidio th every twenty-four hours Biotin 1000 MCG 1 tablet Orally Once a day Active bisoprolol fumarate 5 mg / hydroCHLOROthiazide 6.25 mg oral tablet (10 sources) Thiazide Diuretic, beta-Adrenergic Allison Start: 04-03-2023 End: 07-03-2023 take 1 tablet by mouth once daily Bisoprolol-Hydrochlorothiazide 5-6.25 mg tablet Active 1 TAB PO Daily July 03, 2023 12:57pm Complies with drug therapy take 1 tablet by elpidio th once daily Bisoprolol-hydroCHLOROthiazide 5-6.25 MG TAKE 1 TABLET BY MOUTH EVERY DAY Active esomeprazole 40 mg delayed release oral capsule (9 sources) Proton Pump Inhibitor Start: 08-04-2023 End: 07-31-2024 take 1 capsule by mouth once daily at breakfast Esomeprazole Magnesium 40 mg capsule,delayed release(DR/EC) Active 0 .ROUTE .COMPLEX July 31, 2024 7:45am TAKE 1 CAPSULE BY MOUTH ONCE A DAY ON AN EMPTY STOMACH FOLLOWED IN 30 MINUTES BY BREAKFAST Complies with drug therapy Start: 08-03-2023 End: 08-04-2023 take 1 capsule by mouth once daily Esomeprazole Magnesium 40 mg capsule,delayed release(DR/EC) Discontinued 40 MG PO Daily August 03, 2023 12:00am August 04, 2023 1:39pm take 1 capsule by mo [facility] once daily at breakfast Esomeprazole Magnesium 40 MG TAKE 1 CAPSULE BY MOUTH ONCE A DAY ON AN EMPTY STOMACH FOLLOWED IN 30 MINUTES BY BREAKFAST Active Esomeprazole Magnesium 40 mg capsule,delayed release(DR/EC) (1 source) Start: 08-04-2023 take 1 capsule by mouth once daily at breakfast Esomeprazole Magnesium 40 mg capsule,delayed release(DR/EC) Active 0 .ROUTE .COMPLEX 90 August 04, 2023 12:39pm TAKE 1 CAPSULE BY MOUTH ONCE A DAY ON AN EMPTY STOMACH FOLLOWED IN 30 MINUTES BY BREAKFAST 60 actuat fluticasone propionate 0.25 mg/actuat / salmeterol 0.05 mg/actuat dry powder inhaler (8 sources) Corticosteroi d, beta2-Adrener gic Agonist Start: 04-21-2024 Fluticasone Propion-Salmeterol (Advair Diskus) 250-50 mcg/dose blister with device Active 1 INH INHALATION Every 12 hours 180 90 April 21, 2024 5:00pm Complies with drug therapy Start: 08-03-2023 End: 04-21-2024 Fluticasone Propion-Salmeter ol (Advair Diskus) 250-50 mcg/dose blister with device Discontinued 1 INH INHALATION Every 12 hours August 03, 2023 12:00am April 21, 2024 5:01pm Start: 08-03-2023 Fluticasone Pr opion-Salmeterol (Advair Diskus) 250-50 mcg/dose blister with device Active 1 INH INHALATION Every 12 hours August 02, 2023 11:00pm Start: 08-03-2023 Fluticasone Pr opion-Salmeterol (Advair Diskus) 250-50 mcg/dose blister with device Active 1 INH INHALATION Every 12 hours August 03, 2023 12:00am take 1 puff(s) by mo [facility] every twelve hours Advair Diskus 250-50 MCG/ACT INHALE 1 PUFF BY MOUTH EVERY 12 HOURS for 30 Active Glucosamine Chond Cmp Advanced - (4 sources) Glucosamine Roque d Cmp Advanced - as directed Orally Active mecobalamin 1 mg chewable tablet (3 sources) Start: take 1 tablet by mouth once daily Mecobalamin (Vitamin B12) 1,000 mcg tablet,chewable Active 1000 MCG PO Daily August 03, 2023 12:00am Complies with drug therapy montelukast 10 mg oral tablet (11 sources) Leukotriene Receptor Antagonist Start: take 1 tablet by mouth at bedtime Montelukast 10 mg tablet Active 0 .ROUTE .COMPLEX June 22, 2024 5:14pm TAKE 1 TABLET BY MOUTH AT BEDTIME FOR 90 DAYS Complies with drug therapy Start: 07-03-2023 End: 06-22-2024 take 1 tablet by mouth once daily at bedtime Montelukast 10 mg tablet Discontinued 10 MG PO Daily at bedtime 90 July 03, 2023 6:04pm June 22, 2024 5:14pm take 1 tablet by elpidio th at bedtime Montelukast Sodium 10 MG TAKE 1 TABLET BY MOUTH AT BEDTIME for 90 Active rosuvastatin calcium 20 mg oral tablet (9 sources) HMG-CoA Reductase Inhibitor Start: 12-16-2023 take 1 tablet by mouth once daily Rosuvastatin 20 mg tablet Active 0 .ROUTE .COMPLEX December 16, 2023 9:37pm TAKE 1 TABLET BY MOUTH EVERY DAY Complies with drug therapy Start: 08-16-2023 End: 12-16-2023 take 1 tablet by mouth once daily Rosuvastatin 20 mg tablet Discontinued 20 MG PO Daily August 16, 2023 5:04pm December 16, 2023 9:37pm Start: 08-03-2023 End: 08-16-2023 take 1 tablet by mouth once daily Rosuvastatin 10 mg tablet Discontinued 10 MG PO Daily August 03, 2023 12:00am August 16, 2023 5:04pm Rosuvastatin Apollo cium 10 MG TAKE 1 TABLET BY MOUTH EVERY DAY FOR 30 DAYS for 30 Active ubiquinol 100 mg oral capsule (3 sources) Start: 08-03-2023 Coq10 (Ubiquin ol) (Qunol Juve Coq10) 100 mg capsule Active 200 MG PO Twice daily August 03, 2023 12:00am Complies with drug therapy vitamin b12 1 mg extended release oral tablet (2 sources) Vitamin B12 take 2 tablets by mouth every twenty-four hours Vitamin B12 1000 MCG 2 tablets Orally Once a day Active Vitamin B12 1000 MCG (2 sources) take 2 tablets by mouth once daily Vitamin B12 1000 MCG 2 tablets Orally Once a day Active vitamin e 450 mg oral capsule (5 sources) Start: 08-03-2023 take 1 capsule by mouth once daily Vitamin E Mixed 1,000 unit capsule Active 1000 UNIT PO Daily August 03, 2023 12:00am Complies with drug therapy Vitamin E 1000 U NIT as directed Orally Active Vitamin E 1000 UNIT (2 sources) Vitamin E 1000 U NIT as directed Orally Active Problems Active Problems Problem Classification Problem Date Documented Date Episodic/Chronic Asthma (16 sources) Uncomplicated mild persistent asthma; Translations: [Mild persistent asthma, uncomplicated] Onset: 04-11-2013 Chronic Chronic obstructive pulmonary disease and bronchiectasis (2 sources) Unspecified chronic bronchitis; Translations: [Chronic bronchitis] Onset: 08-25-2016 Chronic Conditions associated with dizziness or vertigo (2 sources) Benign paroxysmal vertigo, bilateral; Translations: [Benign paroxysmal positional vertigo] Episodic Diabetes mellitus without complication (13 sources) Impaired fasting glycemia; Translations: [Impaired fasting glucose] Episodic Disorders of lipid metabolism (15 sources) Hypercholesterolemia; Translations: [Pure hypercholesterolemia, unspecified] Onset: 10-01-2014 Chronic Diverticulosis and diverticulitis (2 sources) Diverticulitis of colon (without mention of hemorrhage); Translations: [Diverticulitis of colon] Onset: 10-20-2013 Chronic Esophageal disorders (9 sources) Esophageal reflux; Translations: [Gastro-esophageal reflux disease with esophagitis] Onset: 10-01-2014 08-01-2023 Chronic Essential hypertension (7 sources) Essential hypertension; Translations: [Essential (primary) hypertension] Chronic Osteoarthritis (3 sources) Bilateral primary osteoarthritis of first carpometacarpal joints; Translations: [Localized, primary osteoarthritis of the hand] Onset: 04-03-2018 Chronic Other aftercare (1 source) Other fci (current) drug therapy Episodic Other aftercare (1 source) Drug therapy finding; Translations: [Other fci (current) drug therapy] 02-22-2024 Episodic Other aftercare (1 source) Taking high risk medication; Translations: [Other fci (current) drug therapy] 02-22-2024 Episodic Other inflammatory condition of skin (1 [...] for unspecified reasons] Episodic Residual codes; unclassified (4 sources) Colon cancer screening declined; Translations: [Procedure and treatment not carried out because of patient's decision for unspecified reasons] 08-01-2023 Episodic Residual codes; unclassified (4 sources) Mammogram declined; Translations: [Procedure and treatment not carried out because of patient's decision for unspecified reasons] 08-01-2023 Episodic Screening and history of mental health and substance abuse codes (1 source) Encounter for screening for depression; Translations: [Encounter for screening for depression] Episodic Viral infection (2 sources) COVID-19; Translations: [Disease caused by 2019nCoV] Past or Other Problems Problem Classification Problem [...] 08-26-2014 Episodic Other acquired deformities (2 sources) [place]-neck deformity; Translations: [[place]-neck deformity] Onset: 04-11-2013 Episodic Other connective tissue [...] Name Value Interpretation Reference Range Facil ity Cholesterol in LDL Calc [Mas s/Vol]on 03-05-2024 Cholesterol in LDL [Mass/Vol] Cholesterol in LDL [Mass/volume] in Serum or Plasma by calculation [facility] Comment on above: <100 mg/dl [id number] 0-129 mg/dl NEAR OR ABOVE [id number] mg/dl BORDERLINE [id number] mg/dl HIGH>190 mg/dl VERY HIGH Cholesterol in VLDL Calc [Ma ss/Vol]on 03-05-2024 Cholesterol in VLDL [Mass/Vol] Cholesterol in VLDL [Mass/volume] in Serum or Plasma by calculation [facility] - Chemistry and C hemistry - challengeon 03-05-2024 ALT [Catalytic activity/Vol] 34 U/L 14-59 [facility] AST [Catalytic activity/Vol] 22 U/L 15-37 [facility] Cholesterol [Mass/Vol] 218 mg/dL High <=200 [facility] Cholesterol in HDL [Mass/Vol] 46 mg/dL 40-60 [facility] Comment on above: > or =60 mg/dl - LOW CARDIOVASCULAR RISK<40 mg/dl - HIGH CARDIOVASCULAR RISK Triglyceride [Mass/Vol] 177 mg/dL High <=150 [facility] Serum or plasma total choles terol/high density lipoprotein (HDL) cholesterol mass adrian 03-05-2024 Cholesterol.total/C holesterol in HDL [Mass ratio] Serum or plasma total cholesterol/high density lipoprotein (HDL) cholesterol mass [facility] Comment on above: 3.3 - 4.4 LOW RISK4. 4 - 7.1 AVERAGE RISK7.1 - 11.0 MODERATE RISK>11.0 HIGH RISK CBC AUTO DIFFon 04-22-2021 BASO # 0.0 103/ul Normal 0.0-0.1 [facility] Comment on above: Performed By: #### C BC #### [facility] [address] [place] [address] Dr. Flex Hart Basophils/100 WBC (Bld) 0.7 % Normal 0.2-2.0 [facility] Comment on above: Performed By: #### C BC #### [facility] [address] [place] [address] Dr. Flex Hart EO # 0.1 103/ul Normal 0.0-0.7 [facility] Comment on above: Performed By: #### C BC #### [facility] [address] [place] [address] Dr. Flex Hart Eosinophils/100 WBC (Bld) 2.2 % Normal 0.9-7.0 [facility] Comment on above: Performed By: #### C BC #### [facility] [address] [place] [address] Dr. Flex Hart Erythrocyte distribution width (RBC) [Ratio] 12.3 % Normal 11.0-15.0 [facility] Comment on above: Performed By: #### C BC #### [facility] [address] [place] [address] Dr. Flex Hart Hematocrit (Bld) [Volume fraction] 42.6 % Normal 36.0-48.0 [facility] Comment on above: Performed By: #### C BC #### [facility] [address] [place] [address] Dr. Flex Hart Hemoglobin (Bld) [Mass/Vol] 13.8 g/dL Normal 12.0-16.0 [facility] Comment on above: Performed By: #### C BC #### [facility] [address] [place] [address] Dr. Flex Hart IG # 0.01 10e3/ul Normal 0.00-0.03 [facility] Comment on above: Performed By: #### C BC #### [facility] [address] [place] [address] Dr. Flex Hart IG % 0.2 % Normal 0.0-0.5 [facility] Comment on above: Performed By: #### C BC #### [facility] [address] [place] [address] Dr. Flex Hart LYMPH # 2.0 103/ul Normal 1.2-3.8 [facility] Comment on above: Performed By: #### C BC #### [facility] [address] [place] [address] Dr. Flex Hart Lymphocytes/100 WBC (Bld) 35.5 % Normal 20.5-60.0 [facility] Comment on above: Performed By: #### C BC #### [facility] [address] [place] [address] Dr. Flex Hart MANUAL DIFF REQ NO Normal [facility] Comment on above: Performed By: #### C BC #### [facility] [address] [place] [address] Dr. Flex Hart MCH (RBC) [Entitic mass] 30.1 pg Normal 26.7-34.0 [facility] Comment on above: Performed By: #### C BC #### [facility] [address] [place] [address] Dr. Flex Hrat MCHC (RBC) [Mass/Vol] 32.4 g/dL Normal 29.9-35.2 [facility] Comment on above: Performed By: #### C BC #### [facility] [address] [address] [address] Flex Hart MCV (RBC) [Entitic vol] 93.0 fL Normal 81.0-99.0 [facility] Comment on above: Performed By: #### C BC #### [facility] [address] [address] [address] Flex Hart MONO # 0.5 103/ul Normal 0.3-0.8 [facility] Comment on above: Performed By: #### C BC #### [facility] [address] [address] [address] Flex Hart Monocytes/100 WBC (Bld) 9.1 % Normal 1.7-12.0 [facility] Comment on above: Performed By: #### C BC #### [facility] [address] [address] [address] Flex Hart NEUT # 2.9 103/ul Normal 1.4-6.5 [facility] Comment on above: Performed By: #### C BC #### [facility] [address] [address] [address] Flex Hart Neutrophils/100 WBC (Bld) 52.3 % Normal 43.0-75.0 [facility] Comment on above: Performed By: #### C BC #### [facility] [address] [address] [address] Flex Hart Platelet mean volume (Bld) [Entitic vol] 9.4 fL Critically low 9.5-13.5 [facility] Comment on above: Performed By: #### C BC #### [facility] [address] [address] [address] Flex Hart PLT 295 103/ul Normal 150-450 [facility] Comment on above: Performed By: #### C BC #### [facility] [address] [address] [address] Flex Hart RBC 4.58 106/ul Normal 4.20-5.40 [facility] Comment on above: Performed By: #### C BC #### [facility] [address] [address] [address] Flex Hart WBC 5.6 103/ul Normal 4.0-11.0 [facility] Comment on above: Performed By: #### C BC #### [facility] [address] [address] [address] Flex Hart LIPID PROFILEon 04-22-2021 CHOL-HDL RATIO NORM SEE BELOW Normal [facility] Comment on above: Result Comment: 3.3 - 4.4 LOW RISK 4.4 - 7.1 AVERAGE RISK 7.1 - 11.0 MODERATE RISK >11.0 HIGH RISK Performed By: #### C MP, LIPID #### [facility] [address] [place] [address] Dr. Flex Hart Cholesterol [Mass/Vol] 294 mg/dL Critically high <=200 [facility] Comment on above: Performed By: #### C MP, LIPID #### [facility] [address] [place] [address] Dr. Flex Hart Cholesterol in HDL [Mass/Vol] 44 mg/dL Normal 40-60 [facility] Comment on above: Performed By: #### C MP, LIPID #### [facility] [address] [place] [address] Dr. Flex Hart Cholesterol in LDL [Mass/Vol] 203.6 mg/dL Normal [facility] Comment on above: Performed By: #### C MP, LIPID #### [facility] [address] [place] [address] Dr. Flex Hart Cholesterol.total/C holesterol in HDL [Mass ratio] 6.7 {ratio} Normal [facility] Comment on above: Performed By: #### C MP, LIPID #### [facility] [address] [place] [address] Dr. Flex Hart HDL NORMAL > or = 60 mg/dl - LOW CARDIOVASCULAR RISK <40 mg/dl - HIGH CARDIOVASCULAR RISK Normal [facility] Comment on above: Performed By: #### C MP, LIPID #### [facility] [address] [place] [address] Dr. Flex Hart LDL CALC NORMAL SEE BELOW Normal [facility] Comment on above: Result Comment: <100 mg/dl OPTIMAL 100 - 129 mg/dl NEAR OR ABOVE OPTIMAL 130 - 159 mg/dl BORDERLINE HIGH 160 - 189 mg/dl HIGH >190 mg/dl VERY HIGH Performed By: #### C MP, LIPID #### [facility] [address] [address] [address] Flex Hart Triglyceride [Mass/Vol] 232 mg/dL Critically high <=150 [facility] Comment on above: Performed By: #### C MP, LIPID #### [facility] [address] [address] [address] Flex Hart VLDL CALC 46.4 mg/dL Normal [facility] Comment on above: Performed By: #### C MP, LIPID #### [facility] [address] [place] [address] Dr. Flex Hart PROF 14(COMP METB)on 022 Albumin [Mass/Vol] 4.2 g/dL Normal 3.4-5.0 [facility] Comment on above: Performed By: #### C MP, LIPID #### [facility] [address] [address] [address] Flex Hart Albumin/Globulin [Mass ratio] 1.1 {ratio} Normal [facility] Comment on above: Performed By: #### C MP, LIPID #### [facility] [address] [place] [address] Dr. Flex Hart ALP [Catalytic activity/Vol] 60 U/L Normal 46-116 [facility] Comment on above: Performed By: #### C MP, LIPID #### [facility] [address] [address] [address] Flex Hart ALT [Catalytic activity/Vol] 28 U/L Normal 14-59 [facility] Comment on above: Performed By: #### C MP, LIPID #### [facility] [address] [address] [address] Flex Hart Anion gap [Moles/Vol] 11.7 mmol/L Normal [facility] Comment on above: Performed By: #### C MP, LIPID #### [facility] [address] [address] [address] Flex Hart AST [Catalytic activity/Vol] 22 U/L Normal 15-37 [facility] Comment on above: Performed By: #### C MP, LIPID #### [facility] [address] [address] [address] Flex Hart Bilirubin [Mass/Vol] 0.4 mg/dL Normal 0.2-1.3 [facility] Comment on above: Performed By: #### C MP, LIPID #### [facility] [address] [address] [address] Flex Hart Calcium [Mass/Vol] 8.9 mg/dL Normal 8.5-10.1 [facility] Comment on above: Performed By: #### C MP, LIPID #### [facility] [address] [address] [address] Flex Hart Chloride [Moles/Vol] 105 mmol/L Normal 98-107 [facility] Comment on above: Performed By: #### C MP, LIPID #### [facility] [address] [address] [address] Flex Hart CO2 [Moles/Vol] 27.6 mmol/L Normal 22.0-30.0 [facility] Comment on above: Performed By: #### C MP, LIPID #### [facility] [address] [address] [address] Flex Hart Creatinine [Mass/Vol] 0.66 mg/dL Normal 0.52-1.04 [facility] Comment on above: Performed By: #### C MP, LIPID #### [facility] [address] [address] [address] Flex Hart EGFR-AF GUATEMALAN >60 Normal >=60 [facility] Comment on above: Performed By: #### C MP, LIPID #### [facility] [address] [address] [address] Flex Hart EGFR-NON AF GUATEMALAN >60 Normal >=60 [facility] Comment on above: Performed By: #### C MP, LIPID #### [facility] [address] [address] [address] Flex Hart Globulin (S) [Mass/Vol] 3.7 g/dL Normal [facility] Comment on above: Performed By: #### C MP, LIPID #### [facility] [address] [address] [address] Flex Hart Glucose [Mass/Vol] 114 mg/dL Critically high 74-106 [facility] Comment on above: Performed By: #### C MP, LIPID #### [facility] [address] [address] [address] Flex Hart Potassium [Moles/Vol] 4.3 mmol/L Normal 3.4-5.0 [facility] Comment on above: Performed By: #### C MP, LIPID #### [facility] [address] [place] [address] Dr. Flex Hart Protein [Mass/Vol] 7.9 g/dL Normal 6.1-8.2 [facility] Comment on above: Performed By: #### C MP, LIPID #### [facility] [address] [address] [address] Flex Hart Sodium [Moles/Vol] 140 mmol/L Normal 137-145 [facility] Comment on above: Performed By: #### C MP, LIPID #### [facility] [address] [place] [address] Dr. Flex Hart Urea nitrogen [Mass/Vol] 16.0 mg/dL Normal 7.0-18.0 [facility] Comment on above: Performed By: #### C MP, LIPID #### [facility] [address] [place] [address] Dr. Flex Hart Urea nitrogen/Creatinine [Mass ratio] 24.2 mg/mg Normal [facility] Comment on above: Performed By: #### C MP, LIPID #### [facility] [address] [place] [address] Dr. Flex Hart Vital Signs Date Time Vital Sign Value Performing Clinician Facility 08-04-2024 10:56-0400 Body height 160.02 cm Patrick Tse DO Work Phone: [facility] 08-04-2024 10:56-0400 Body mass index (BMI) [Ratio] 28.5 kg/m2 Patrick Ball DO Work Phone: [facility] 08-04-2024 10:56-0400 Body weight 73.14 kg Patrick Ball DO Work Phone: [facility] 08-04-2024 10:56-0400 Diastolic blood pressure 75 mm[Hg] Patrick Ball DO Work Phone: [facility] 08-04-2024 10:56-0400 Heart rate 66 /min Patrick Ball DO Work Phone: [facility] 08-04-2024 10:56-0400 Respiratory rate 12 /min Patrick Ball DO Work Phone: [facility] 08-04-2024 10:56-0400 Systolic blood pressure 134 mm[Hg] Patrick Ball DO Work Phone: [facility] 03-28-2024 10:13-0500 Body height 160.02 cm [facility] 03-28-2024 10:13-0500 Body mass index (BMI) [Ratio] 28.8 kg/m2 [facility] 03-28-2024 10:13-0500 Body weight 73.65 kg [facility] 03-28-2024 10:13-0500 Diastolic blood pressure 94 mm[Hg] [facility] 03-28-2024 10:13-0500 Heart rate 83 /min [facility] 03-28-2024 10:13-0500 Respiratory rate 12 /min [facility] 03-28-2024 10:13-0500 Systolic blood pressure 189 mm[Hg] [facility] 08-03-2023 11:08-0400 Body height 160.02 cm [facility] 08-03-2023 11:08-0400 Body mass index (BMI) [Ratio] 28.3 kg/m2 [facility] 08-03-2023 11:08-0400 Body weight 72.68 kg [facility] 08-03-2023 11:08-0400 Diastolic blood pressure 71 mm[Hg] [facility] 08-03-2023 11:08-0400 Heart rate 71 /min [facility] 08-03-2023 11:08-0400 Respiratory rate 12 /min [facility] 08-03-2023 11:08-0400 Systolic blood pressure 127 mm[Hg] [facility] 03-19-2023 09:30-0500 Body height 167.64 cm Patrick Ball Other [facility] [employer] Other 03-19-2023 09:30-0500 Body mass index (BMI) [Ratio] 26.66 kg/m2 Patrick Ball Other [employer] Other 03-19-2023 09:30-0500 Body weight 74.93 kg Patrick Ball Other [employer] Other 03-19-2023 09:30-0500 Diastolic blood pressure 75 mm[Hg] Patrick Ball Other [employer] Other 03-19-2023 09:30-0500 Respiratory rate 12 /min Patrick Ball Other [employer] Other 03-19-2023 09:30-0500 Systolic blood pressure 130 mm[Hg] Patrick Ball Other [employer] Other 08-01-2022 09:30-0400 Body height 167.64 cm Patrick Ball Other [employer] Other 08-01-2022 09:30-0400 Body mass index (BMI) [Ratio] 25.85 kg/m2 Patrick Ball Other [employer] Other 08-01-2022 09:30-0400 Body weight 72.67 kg Patrick Ball Other [employer] Other 08-01-2022 09:30-0400 Diastolic blood pressure 80 mm[Hg] Patrick Tse Other [employer] Other 08-01-2022 09:30-0400 Respiratory rate 12 /min Patrick Tse Other [employer] Other 08-01-2022 09:30-0400 Systolic blood pressure 125 mm[Hg] Patrick Tse Other [employer] Other Encounters Encounter Date Encounter Type Care Provider Facility Start: 08-04-2024 End: 08-04-2024 ambulatory Patrick Tse DO Work Phone: [facility] Work Phone: Start: 08-04-2024 End: 08-04-2024 Patient encounter procedure Patrick Tse DO -[facility] Work Phone: Start: 07-30-2024 Patient encounter procedure Patrick Tse DO Work Phone: [facility] Start: 03-28-2024 End: 03-28-2024 ambulatory [facility] Work Phone: Start: 03-28-2024 End: 03-28-2024 Patient encounter procedure [facility] Work Phone: Start: 03-05-2024 Non-patient / Non-visit [facility] [facility] Work Phone: Start: 08-03-2023 End: 08-03-2023 ambulatory [facility] Work Phone: Start: 08-03-2023 End: 08-03-2023 Patient encounter procedure [facility] Work Phone: Start: 07-03-2023 Non-patient / Non-visit [facility] Work Phone: Start: 03-19-2023 End: 03-19-2023 ambulatory Patrick Blane Other [employer] Other Start: 03-19-2023 Office outpatient vi sit 25 minutes Patrick Tse [facility] Start: 02-27-2023 End: 02-27-2023 ambulatory Patrick Tse Other [employer] Other Start: 02-27-2023 Telephone encounter Patrick Tse [facility] Start: 08-04-2022 End: 08-04-2022 ambulatory Patrick Tse Other [employer] Other Start: 08-04-2022 Telephone encounter Patrick Tse [facility] Start: 08-01-2022 End: 08-01-2022 ambulatory Patrick Tse Other [employer] Other Start: 08-01-2022 Initial preventive exam Patrick Webb narayan [facility] Start: 08-01-2022 Patient encounter procedure Patrick Tse [facility] Start: 08-01-2022 Patient encounter status Patrick Tse Other [employer] Other Start: 04-26-2021 Encounter for genera l adult medical examination without abnormal findings DR PATRICK TSE [facility] Start: 04-22-2021 End: 04-23-[address] PATRICK TSE Facility:[facility] Start: 04-22-2021 End: 04-23-2021 Encounter for general adult medical examination without abnormal findings DR PATRICK TSE Facility:[facility] Start: 04-18-2021 Adult health examination Patrick Tse Other [employer] Other Start: 04-18-2021 Encounter for genera l adult medical examination without abnormal findings Patrick Tse Other [employer] Other Procedures Date Procedure Procedure Detail Performing Clinician Start: 08-25-2016 General examination of patient Patrick Tse Other Start: 10-01-2014 Hyperlipidemia screening Patrick Tse Other Depression screening Guerda Tse Other Plan of Treatment Date Care Activity Detail Author Comprehensive metabo lic 1999 panel - Serum or Plasma [facility] enter Comprehensive metabo lic 1999 panel - Serum or Plasma [facility] enter [facility] Payers Date Payer Category Payer Unknown [id number] 1957 Unknown [id number] 1955 Unknown [id number] Medicare [id number] Private Health Insurance CLI [id number] Social History Date Type Detail Facility Sex Assigned At [employer] Other Start: 08-03-2023 End: 08-04-2024 Tobacco smoking status COIS Never smoked tobacco (finding) [facility] Start: 1955 Sex Assigned At Female F [facility] Start: 03-28-2024 Sex Female (finding) [facility] Evaluation note 03-19-2023 Note Date & [...] if overweight.PPI with any heartburn.Monitor for dysphagia. [employer] Other Evaluation note 08-01-2022 Note Date & [...] High risk medication use (ICD-10 - Z79.899) [employer] Other Evaluation note Note Date & Type Note Facility Evaluation note No Information [facility] Other Evaluation note Note Date & Type Note Facility Evaluation note Diagnosis Onset Date Asthma acute GERD (gastroesophageal reflux disease) acute Hypercholesterolemia acute Hypertension acute IFG (impaired fasting glucose) acute Screening for malignant neop lasm of colon declined acute Screening mammography declined acute Medicare annual wellness visit, initial noneactive [facility] Work Phone: Evaluation note Note Date & Type Note Facility Evaluation note No assessment information availa ble [facility] Work Phone: Evaluation note Note Date & Type Note Facility Evaluation note Diagnosis Onset Date Resolution Asthma acute August 04 10:47am GERD (gastroesophageal reflux disease) acute August 04, 2024 10:47am Hypercholesterolemia acute August 04, 2024 10:47am Hypertension acute August 04, 2 025 10:47am IFG (impaired fasting glucose) acute August 04, 2024 10:47am Medicare annual wellness visit, subsequent acute August 04 10:47am Screening for malignant neoplasm of colon declined acute August 04, 2024 10:47am Screening mammography declined acute August 04, 2024 10:47am [facility] Work Phone: History general Narrative - Reported Note Date & Type Note Facility History general Narrative - Reported Type Medical History Hypercholesterolemia Medical History Gastroesophageal ref lux disease with esophagitis without hemorrhage Medical History IFG (impaired fasting glucose) [employer] Other History general Narrative - Reported Note [...] no changes required, Problem Status : Resolved, [employer] Other History general Narrative - Reported Note Date & Type Note Facility History general Narrative - Reported Type Medical History Hypercholesterolemia Medical History Gastroesophageal ref lux disease with esophagitis without hemorrhage Medical History IFG (impaired fasting glucose) Surgical History No know Surgical history [employer] Other Reason for referral (narrative) Note Date & Type Note Facility Reason for referral (narrative) No reason for referral information available [facility] Work Phone: Summary Purpose Family History Relationship Condition Age at Onset Recorded Date/T gurjit father Malignant neoplasm Unknown Advance Directives Advance Directive Response Recorded Date/ Time Advance Directives No March 11:17am Advance Directive Response Recorded Date/ Time Advance Directives No March 10:17am Chief Complaint and Reason for Visit Chief Complaint Amb Documentation Medicare Wellness Reason for Visit Asthma GERD (gastroesophageal reflux disease) Hypercholesterolemia Hypertension IFG (impaired fasting glucose) Screening for malignant neoplasm of colon declined Screening mammography declined Medicare annual wellness visit, initial Chief Complaint Admit Date Sinuses/Ear Pain/Coughing March 28, 2024 10:04am Chief Complaint Admit Date MAWV August 04, 2024 10:4 7am Reason for Visit Admit Date Asthma August 04, 2024 10:4 7am GERD (gastroesophageal reflux disease) J une 2024 10:47am Hypercholesterolemia August 04, 2024 10: 47am Hypertension August 04, 2024 10:4 7am IFG (impaired fasting glucose) July 10:47am Medicare annual wellness visit, subseque nt August 04, 2024 10:47am Screening for malignant neoplasm of colo n declined August 04, 2024 10:47am Screening mammography declined July 10:47am Additional Source Comments INFORMATION SOURCE (unrecogn ized section and content) DATE CREATED AUTHOR 04/27/2021 [employer] REASON FOR VISIT (unrecogniz ed section and content) Lab ResultsWellnessNo Inform ation6 Month Check Up Care Teams (unrecognized sec tion and content) Team Status: Active Member Role Status Dates Patrick Blane , DO Primary Care Provider Active Team Status: Inactive Member Role Status Dates Patrick Blane , Primary Care Provider Active Start: August 04, 2024 End: August 04, 2024 Patrick Tse , DO Attending Provider Active Sta rt: August 04, 2024 End: August 04, 2024 Team Status: Active Member Role Status Dates Patrick Tse , Primary Care Provider Active Team Status: Active Member Role Status Dates Patrick Tse , Primary Care Provider Active Start: July 03, 2023 Megan Manuel LPN Attending Provider Active St art: July 03, 2023 Team Status: Inactive Member Role Status Dates Patrick Tse , DO Primary Care Provide r, Attending Provider Active Start: August 03, 2023 End: August 03, 2023 Team Status: Active Member Role Status Dates Patrick Blane , DO Primary Care Provide r, Attending Provider Active Start: March 05, 2024 Team Status: Inactive Member Role Status Dates Patrick Tse , DO Primary Care Provide r, Attending Provider Active Start: March 28, 2024 End: March 28, 2024 Team Status: Inactive Member Role Status Dates Patrick Blane , DO Primary Care Provider Active Start: August 04, 2024 End: August 04, 2024 Patrick Tse , DO Attending Provider Active Sta rt: August 04, 2024 End: August 04, 2024 Goals (unrecognized section and content) Goals may [...] BE BASED ON THE PRIMARY CLINICAL RECORDS. [employer] [facility]. provides no warranty or guarantee of the accuracy or completeness of information in this document.
[2024-08-18 08:47] LABS: Hematocrit 41.7 % (36.0-48.0); Hemoglobin 13.8 g/dL (12.0-16.0); Immature Granulocytes Abs Auto 0.01 10^3/uL (0.00-0.03); Immature Granulocytes Pct Auto 0.2 % (0.0-0.5); Lymphocytes Absolute Auto 1.7 10^3/uL (1.2-3.8); Mean Corpuscular HGB Conc 33.1 g/dL (29.9-35.2); Mean Corpuscular Hemoglobin 29.9 pg (26.7-34.0); Mean Corpuscular Volume 90.5 fL (81.0-99.0); Platelet Count 272 10^3/uL (150-450); Red Blood Count 4.61 10^6/uL (4.20-5.40); White Blood Count 5.4 10^3/uL (4.0-11.0)
[2024-08-18 10:17] LABS: Alanine Aminotransferase 39 U/L (14-59); Albumin Globulin Ratio 1.3; Albumin Level 4.1 g/dL (3.4-5.0); Alkaline Phosphatase 55 U/L (46-116); Anion Gap 15.2; Aspartate Amino Transferase 22 U/L (15-37); Blood Urea Nitrogen 16.0 mg/dL (7.0-18.0); Calcium 9.2 mg/dL (8.5-10.1); Carbon Dioxide 28.1 mmol/L (21.0-32.0); Chloride 107 mmol/L (98-107); Cholesterol 183 mg/dL (<=200); Estimated GFR (African America >60 (>=60 mL/min/1.73m^2); Estimated GFR (Non-African Ame >60 (>=60 mL/min/1.73m^2); Globulin 3.2 g/dL; Glucose 112 mg/dL (74-106); HDL Cholesterol 48 mg/dL (40-60); Potassium 4.3 mmol/L (3.5-5.1); Sodium 146 mmol/L (136-145); Total Protein 7.3 g/dL (6.4-8.2); Triglycerides 162 mg/dL (<=150); VLDL CHOLESTEROL 32.4 mg/dL
== END 2024-08-18 07:55 | disposition home or self-care (01) ==
PROVIDERS: PCP Internal Medicine; Visit Provider Internal Medicine
DX: E78.00 Pure hypercholesterolemia, unspecified (principal); R73.01 Impaired fasting glucose; I10 Essential (primary) hypertension
CPT/HCPCS: 36415; 80053; 80061; 83036; 85025